=== PATIENT | female | born 1995 | race American Indian/Alaskan Native ===

== ENCOUNTER 2018-07-28 19:41 | Emergency (ER) | payer SELFPAY ==
[2018-07-28 20:23] LABS: Hematocrit 35.2 % (30.3-42.9); Mean Corpuscular HGB Conc 34 % (30-34); Mean Corpuscular Volume 91 fl (79-97); Platelet Count 197 K/mm3 (140-440); Red Blood Count 3.86 M/mm3 (3.65-5.03); Red Cell Distribution Width 13.7 % (13.2-15.2)
[2018-07-28 20:43] LABS: BUN/Creatinine Ratio 12; Blood Urea Nitrogen 11 mg/dL (7-17); Calcium 9.3 mg/dL (8.4-10.2); Hemolysis Index 4
--- NOTE | 2018-07-28 20:49 | Event Note ---
Date: 07/28/18 Patient leaving against medical recommendations, medical advice. The patient is alert and oriented 3, clinically sober, and exhibits decision-making capacity. She is free from distracting injury at this time. The risks of leaving, including , disability, paralysis, permanent loss of quality of life were discussed with the patient and she verbalized understanding, and was able to articulate these in her own words. She was instructed to return to the emergency room right away if and when she changes her mind about completing her medical evaluation. This conversation is witnessed by nurses Adam Wiley and Mony Rivera
[2018-07-28 20:56] VITALS: BP 124/77
== END 2018-07-28 20:48 | disposition left against medical advice (07) ==
LOC: ED 19:41
DX: R56.9 Unspecified convulsions (principal); Z53.21 Procedure and treatment not carried out due to patient leaving prior to being seen by health care provider
CPT/HCPCS: 36415; 80048; 85027